=== PATIENT | female | born 1980 | race Caucasian/White ===

== ENCOUNTER 2022-10-29 12:52 | Emergency (ER) | payer OTHER ==
[2022-10-29 13:13] VITALS: BP 145/96; PULSE 66; RESP 16; TEMP 98; BMI 52.9
== END 2022-10-29 14:39 | disposition home or self-care (01) ==
LOC: FER 12:52
DX: M79.662 Pain in left lower leg (principal)
CPT/HCPCS: 93971-TC; 99284-25